=== PATIENT | female | born 1965 | race African-American/Black ===

== ENCOUNTER 2017-10-03 16:13 | Emergency (ER) | payer BC ==
[~2017-10-03] VITALS: Ht 165.1 cm; Wt 78.0 kg
[2017-10-03] MEDS ORDERED: VITAMIN D (16:38)
[2017-10-03] MEDS ORDERED: PANTOPRAZOLE SODIUM 40 MG/VIAL IV STA (17:05)
[2017-10-03 17:26] LABS: BASOPHILS % 0.6 % (0.0-2.0); EOSINOPHILS % 0.1 % (0.0-5.0); HEMATOCRIT. 39.8 % (36.0-48.0); HEMOGLOBIN. 13.9 g/dL (12.0-16.0); LYMPHOCYTES % 16.2 % (20.0-50.0); MEAN CORPUSCULAR HEMOGLOBIN 29.8 pg (28.0-32.0); MEAN CORPUSCULAR VOLUME 85.3 fL (81.0-99.0); MEAN PLATELET VOLUME 8.9 fl (7.4-10.4); MONOCYTES % 7.6 % (2.0-8.0); NEUTROPHILS % 75.5 % (40.0-76.0); PLATELET 180 x1000/uL (130-400); RED BLOOD CELL COUNT 4.66 mill/uL (4.2-5.4); RED CELL DISTRIBUTION WIDTH 12.2 % (11.6-14.6)
[2017-10-03 17:30] LABS: HCG SCREEN NEGATIVE; INR 1.2; PROTHROMBIN TIME 12.1 sec (9.4-11.6)
[2017-10-03 17:32] LABS: CHLORIDE 106 mEq/L (98-107)
[2017-10-03 17:36] LABS: CARBON DIOXIDE 29 mEq/L (21-32)
[2017-10-03 18:08] LABS: CLARITY URINE CLOUDY (CLEAR); COLOR URINE YELLOW (YELLOW); GLUCOSE URINE NEGATIVE (NEGATIVE); KETONES URINE 1+ (NEGATIVE); LEUKOCYTE ESTERASE URINE 2+ (NEGATIVE); NITRITE URINE NEGATIVE (NEGATIVE); OCCULT BLOOD URINE NEGATIVE (NEGATIVE); PROTEIN URINE TRACE (NEGATIVE); SPECIFIC GRAVITY URINE 1.031 (1.005-1.030)
[2017-10-03 20:20] VITALS: BP 105/62
== END 2017-10-03 20:22 | disposition home or self-care (01) ==
LOC: ER 17:08
DX: K29.70 Gastritis, unspecified, without bleeding (principal); N39.0 Urinary tract infection, site not specified; F41.9 Anxiety disorder, unspecified; Z88.0 Allergy status to penicillin
CPT/HCPCS: 36415; 74000; 80053; 81001; 83690; 84703; 85025; 85610; 96374; 99285; C9113; Z7610

== ENCOUNTER 2023-07-10 07:49 | Emergency (ER) | payer BC ==
[~2023-07-10] VITALS: Ht 165.1 cm; Wt 83.0 kg
[~2023-07-10 07:49] MED LIST: VITAMIN D
[2023-07-10 08:19] VITALS: O2SAT 99
[2023-07-10] MEDS: IBUPROFEN 600MG TABLET PO ONE (08:50)
[2023-07-10 09:55] VITALS: BP 133/62; PULSE 68; RESP 18; TEMP 98.7
== END 2023-07-10 09:57 | disposition home or self-care (01) ==
LOC: ER 07:49
DX: M79.672 Pain in left foot (principal); F41.9 Anxiety disorder, unspecified; I10 Essential (primary) hypertension; Z88.0 Allergy status to penicillin
CPT/HCPCS: 73630; 81025; 99283